=== PATIENT | female | born 1935 | race African-American/Black ===

== ENCOUNTER → 2018-02-25 | Outpatient (CLI) | payer BC, MEDICARE ==
--- NOTE | 2018-02-25 15:22 | Diagnostic Imaging Report ---
Date and Time: Procedure: Ultrasound-guided fine-needle aspiration right thyroid nodule air support operations operator: Dr. Davalos Pre-operative diagnosis: Multiple thyroid nodules Post-operative diagnosis: Multiple thyroid nodules Conscious Sedation: None The patient's heart rate and pulse oximetry were continuously monitored by the interventional radiology nurse. Blood pressure was monitored at 5 minute intervals. Additional Medications: Lidocaine 1% for local anesthesia Fluoroscopy time: 0 Dose-area Product: 0 mGycm2. Frontal Air Kerma: 0 Contrast used: 0 Estimated blood loss: Minimal Blood products administered: None Specimens: Fine-needle aspirations x4 of right thyroid nodule Implants: None Condition at completion: Stable Disposition: Discharged home DISCUSSION: Informed consent was obtained and documented in the medical record after discussion of risks and benefits. The cervical region was prepped and draped in the standard sterile fashion. Preliminary sonographic evaluation showed an approximately 2 cm heterogeneous right thyroid nodule and a large, approximately 4 cm heterogeneous left thyroid nodule. Attention was first turned to the right thyroid nodule. A suitable percutaneous approach was identified and 1% lidocaine was infiltrated into the skin and subcutaneous tissues for local anesthesia. Then under continuous sonographic guidance, a total of 4 fine needle aspiration specimens were obtained using 25-gauge needles. Specimens were submitted to on-site cytopathology personnel and adequacy was confirmed. At this point, due to discomfort in the neck, the patient declined to proceed with planned ultrasound-guided FNA of the left thyroid nodule. The procedure was therefore terminated. A sterile dressing was applied over the right thyroid. The patient tolerated the procedure well. FINDINGS: Bilateral thyroid nodules as above. IMPRESSION: Successful ultrasound-guided fine-needle aspiration of a right thyroid nodule. The patient declined to proceed with planned ultrasound-guided fine-needle aspiration of the left thyroid nodule. The interventional radiology service will be happy to perform ultrasound-guided FNA of the left thyroid nodule at a later date if the patient wishes to proceed. This was discussed with the patient prior to discharge. Signed by: Dr. Leonides Davalos M.D. on 02/25/2018 3:18 PM
== END ==
LOC: US 12:18
PROVIDERS: ATTEND Family Medicine
DX: E04.1 Nontoxic single thyroid nodule (principal)
CPT/HCPCS: 10022; 76942; 88112; 88172; 88173; 88305